=== PATIENT | male | born 1985 | race Caucasian/White ===

== ENCOUNTER 2020-05-07 08:45 | Outpatient (REF) | payer OTHER, SELFPAY | END 2020-05-07 08:46 | disposition home or self-care (01) | LOC: HO.LAB 08:45 | PROVIDERS: Visit Provider Internal Medicine | DX: Z20.828 Contact with and (suspected) exposure to other viral communicable diseases (principal) | CPT/HCPCS: C9803; U0003 ==

== ENCOUNTER 2020-05-22 13:58 | Outpatient (REF) | payer OTHER, SELFPAY | END 2020-05-22 13:59 | disposition home or self-care (01) | LOC: HO.LAB 13:58 | PROVIDERS: PCP Pediatrics; Visit Provider Internal Medicine | DX: Z20.828 Contact with and (suspected) exposure to other viral communicable diseases (principal) | CPT/HCPCS: C9803; U0003 ==

== ENCOUNTER 2020-07-16 22:15 | Emergency (ER) | payer OTHER, SELFPAY ==
[2020-07-16 22:27] VITALS: BP 120/86; PULSE 95; RESP 18; TEMP 36.8; O2SAT 96; BMI 38.4
--- NOTE | 2020-07-17 01:39 | ED.WOUNDLAC ---
HPI - Wound/Laceration General Chief Complaint: Wound/Laceration Stated Complaint: Finger laceration Time Seen by Provider: 07/17/20 01:37 Source: patient Mode of arrival: ambulatory History of Present Illness HPI narrative: This is a 35-year-old male who presents with superficial laceration to the 4th digit of the right hand that he states was lacerated by a ?Can of Spam?. Patient states he does not know when his last tetanus shot was. Related Data Allergies Allergy/AdvReac Type Severity Reaction Status Date / Time haloperidol [From HALDOL] Allergy Unknown UNKNOWN Unverified 02/16/20 19:17 Review of Systems Review of Systems: Pertinent positives and negatives as stated in HPI and 10 point review of systems is otherwise negative. [facility] [place] Past Medical History Source: nursing notes reviewed Medical History No known health problems Social History Social History Alcohol intake: never Smoking Status: Never smoker Advance Directives: No Physical Exam Vital Signs: Vital Signs: Last Vital Signs Temp 98.2 F 07/16/20 22:27 Pulse 73 07/17/20 02:16 Resp 18 07/17/20 02:16 BP 113/71 07/17/20 02:16 Pulse Ox 94 07/17/20 02:16 Body Mass Index 38.4 VITAL SIGNS: Reviewed. OROPHARYNX: no oral lesions noted, posterior pharynx clear NECK: Supple, no adenopathy LUNGS: Normal breath sounds. SpO2<96> CARDIOVASCULAR: Regular rate and rhythm without noted murmurs ABDOMEN: Soft, non-tender, non-distended with bowel sounds. RIGHT 4TH DIGIT: Superficial laceration to the radial side of PIP, capillary refill less than 3 seconds, and hemostatic SKIN: Inspection of the skin reveals no rashes NEUROLOGIC: Alert and oriented x 4. Course Course Course Narrative: This is a 35-year-old male with history and clinical presentation consistent with superficial laceration to 4th digit PIP unlikely to support sutures and will repair with Dermabond, Tdap was administered at this visit, and combination of analgesics were provided. Patient was then discharged in stable condition and recommended to follow-up with his primary care provider. Procedures Laceration Laceration 1: Site: hand (Fourth digit) Side (If applicable): right Size (cm): 2 Description: flap Depth: simple, single layer Pre-repair: wound explored and irrigated extensively Skin layer closed with: other (Dermabond) Discharge Plan Discharge Clinical Impression: Laceration Patient Disposition: Home, Self-Care Instructions: Finger Laceration (ED), Skin Adhesive Care (ED) Additional Instructions: May use [id number] Tylenol or ibuprofen for pain control. Do not get the skin adhesive wet for 24 hours, but thereafter you may use soap and water and blot dry. The skin adhesive will gradually loosen and disappear as skin heals. Please follow-up with your primary care provider in 2-3 days. Do not hesitate to return to the emergency department should you develop any acute concerns regarding redness, swelling, fevers, chills. Referrals: Geovani Gutierrez MD [Primary Care Provider] - 2 days (Re-evaluation and management after repair of right 4th digit laceration with Dermabond.)
[2020-07-17] MEDS: Acetaminophen 325 MG TABLET 975 MG PO (02:01)
[2020-07-17] MEDS: Ibuprofen 400 MG TABLET PO (02:02)
[2020-07-17 02:16] VITALS: BP 113/71; PULSE 73; RESP 18; O2SAT 94
--- NOTE | 2020-07-17 03:06 | PC.NURSE ---
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
== END 2020-07-17 03:41 | disposition home or self-care (01) ==
PROVIDERS: Emergency Provider Student in an Organized Health Care Education/Training Program; PCP Pediatrics
DX: S61.214A Laceration without foreign body of right ring finger without damage to nail, initial encounter (principal); W26.8XXA Contact with other sharp object(s), not elsewhere classified, initial encounter; Y93.G1 Activity, food preparation and clean up; Y92.010 Kitchen of single-family (private) house as the place of occurrence of the external cause; Y99.9 Unspecified external cause status
CPT/HCPCS: 12001; 90471; 90715; 99284

== ENCOUNTER 2020-09-11 11:07 | Outpatient (REF) | payer OTHER, SELFPAY ==
[2020-09-11 12:18] LABS: COVID-19 Test Negative (Negative)
== END 2020-09-11 11:08 | disposition home or self-care (01) ==
LOC: HO.LAB 11:07
PROVIDERS: Visit Provider Internal Medicine
DX: Z20.822 Contact with and (suspected) exposure to COVID-19 (principal)
CPT/HCPCS: 36415; 87635; C9803

== ENCOUNTER 2021-01-08 14:58 | Outpatient (REF) | payer OTHER, SELFPAY | END 2021-01-08 14:59 | disposition home or self-care (01) | LOC: HO.LAB 14:58 | PROVIDERS: PCP Pediatrics; Visit Provider Internal Medicine | DX: Z20.822 Contact with and (suspected) exposure to COVID-19 (principal) | CPT/HCPCS: C9803; U0003; U0005 ==